=== PATIENT | female | born 1975 | race American Indian/Alaskan Native ===

== ENCOUNTER 2020-09-30 06:06 | Day surgery (SDC) | payer BC, OTHER ==
[~2020-09-30 06:06] MED LIST: Dextrose 5%-0.45% NaCl 1,000 ML IV SCH; Sodium Chloride 0.9% 10 ML Syringe FLUSH PRN
[2020-09-30] MEDS ORDERED: fentaNYL 100 MCG/2 ML SDV IV ONE ×7 (06:07→07:04)
[2020-09-30] MEDS ORDERED: Midazolam 1 MG/ML 2 ML SDV IV ONE ×7 (06:07→06:56)
[2020-09-30] MEDS ORDERED: Midazolam 1 MG/ML 2 ML SDV ONE ×2 (06:15→06:16)
[2020-09-30] MEDS ORDERED: fentaNYL 100 MCG/2 ML SDV ONE ×2 (06:16→06:17)
--- NOTE | 2020-09-30 08:59 | OR ---
DATE: 09/30/2020 PROCEDURE: Total colonoscopy and cold snare polypectomy. INSTRUMENT USED: PCF-H190DL Olympus video colonoscope. PREMEDICATIONS: Fentanyl 200 mcg intravenous, Versed 4 mg intravenous, nasal O2 cannula. The procedure was done under pulse oximetry, BP recording, and goat farmer. INDICATION: Screening colonoscopic examination is done for detection of any polypoid lesions and removal, endoscopic hemostasis therapy if needed. DESCRIPTION OF PROCEDURE: Initial rectal exam was unremarkable. Rigid anoscopy was normal. The colonoscope was passed with ease. Diverticular opening was noted in the distal descending colon. The scope was passed up to the ileocecal area. Photographs were taken of the normal-appearing cecum, identified by landmarks of appendiceal orifice and double-bulged ileocecal folds. The examination was a bit prolonged due to the redundancy of the colon and adhesions. No bleeding was noted from any of the visualized areas at the commencement of the examination. Bowel preparation was found to be adequate, [place] scale 2 in all the regions, total score 6. No stricture. No vascular ectasia. No large isolated ulcerations seen. No evidence of diffuse inflammatory bowel disease in the form of friability, contact bleeding, or ulcerations. No polyp or tumor mass identified. Probing the proximal sides of folds and flexures using adequate distention and clearing up the stool material, withdrawal of the scope was made, cecum to rectum time over 6 minutes. In the proximal sigmoid colon, diminutive benign-appearing polyp was noted, photograph was taken, cold snare polypectomy was done, the tissue was retrieved and sent to histopathology. IMPRESSION: 1. Diverticulosis. 2. Diminutive sigmoid polyp. The patient tolerated the procedure well. [facility] /[id number]
[2020-09-30 09:24] VITALS: BP 115/73; PULSE 69
--- NOTE | 2020-09-30 11:57 | LETTER ---
09/30/2020 [facility] [address] [place] [address] RE: RERE VASQUEZ : 1975 Dear Ms. Espitia: Ms. Rere Beasley had colonoscopic examination done this morning, and she tolerated the procedure well. I herewith send a copy of the endoscopy note and photographs for your review. Thank you. Sincerely, [facility] /[id number]
== END 2020-09-30 09:30 | disposition home or self-care (01) ==
LOC: DL.ENDO 06:06
PROVIDERS: ATTEND Internal Medicine Gastroenterology
DX: Z12.11 Encounter for screening for malignant neoplasm of colon (principal); K63.5 Polyp of colon; K57.30 Diverticulosis of large intestine without perforation or abscess without bleeding; E66.09 Other obesity due to excess calories; F41.1 Generalized anxiety disorder; N83.209 Unspecified ovarian cyst, unspecified side; Z88.0 Allergy status to penicillin; Z88.8 Allergy status to other drugs, medicaments and biological substances; Z98.890 Other specified postprocedural states; Z68.30 Body mass index [BMI] 30.0-30.9, adult
CPT/HCPCS: 45385; 81025; J2250; J3010; J7042

== ENCOUNTER 2023-02-09 13:26 | Emergency (ER) | payer BC, OTHER ==
[2023-02-09 13:36] VITALS: BP 131/91; PULSE 88
[2023-02-09] MEDS ORDERED: Sodium Chloride 0.9% 10 ML Syringe FLUSH PRN (13:37)
[2023-02-09 14:15] LABS: PTT,PARTIAL THROMBOPLSTIN TIME 26.4 SEC (22.0-34.0)
[2023-02-09 14:21] LABS: CHLORIDE,CL 104 mmol/L (98-107); ESTIMATED GFR 108 mL/min (>=60); SODIUM,NA 142 mmol/L (136-145)
[2023-02-09] MEDS ORDERED: Iopamidol 612 MG/ML 100 ML Bottle IVPUSH ONE (14:31)
[2023-02-09] MEDS ORDERED: cefTRIAXone 2 GM Vial IVPUSH ONE (15:10)
== END 2023-02-09 15:57 | disposition home or self-care (01) ==
LOC: DL.ED 13:26
DX: K80.00 Calculus of gallbladder with acute cholecystitis without obstruction (principal); E78.00 Pure hypercholesterolemia, unspecified; E66.9 Obesity, unspecified; F17.210 Nicotine dependence, cigarettes, uncomplicated; Z68.30 Body mass index [BMI] 30.0-30.9, adult; Z86.16 Personal history of COVID-19; Z88.0 Allergy status to penicillin; Z88.2 Allergy status to sulfonamides; Z79.899 Other long term (current) drug therapy
CPT/HCPCS: 36415; 71045; 74177; 80053; 82150; 83605; 83690; 84145; 84484; 85025; 85610; 85730; 86140; 93005; 93010; 96374; 99284; J0696; J3490; Q9967

== ENCOUNTER 2025-05-14 02:54 | Emergency (ER) | payer BC, OTHER ==
[2025-05-14 03:15] VITALS: BP 133/90; PULSE 88
== END 2025-05-14 03:55 | disposition home or self-care (01) ==
LOC: DL.ED 02:54
DX: T78.1XXA Other adverse food reactions, not elsewhere classified, initial encounter (principal); E78.00 Pure hypercholesterolemia, unspecified; Z86.16 Personal history of COVID-19; Z79.899 Other long term (current) drug therapy; Z68.28 Body mass index [BMI] 28.0-28.9, adult
CPT/HCPCS: 99283; Q0163